=== PATIENT | female | born 2000 | race American Indian/Alaskan Native ===

== ENCOUNTER → 2024-07-26 | Outpatient (CLI) | payer BC, MEDICAID, SELFPAY ==
--- NOTE | 2024-07-26 09:15 | XR_ITS ---
Examination: Shoulder,left, 3 views Technique: Shoulder AP internal rotation, AP external rotation, Y view shoulder, 3 views Exam date and time :July 26, 2024 1008 hours INDICATIONS: Sports injury to the shoulder 2 months ago, shoulder pain FINDINGS: No shoulder fracture or dislocation No AC joint separation IMPRESSION: Negative for osseous abnormality
== END | disposition home or self-care (01) ==
LOC: CDIM 08:57
PROVIDERS: PCP Internal Medicine; Referring Provider Internal Medicine; Visit Provider Internal Medicine
DX: S49.92XA Unspecified injury of left shoulder and upper arm, initial encounter (principal); Y93.79 Activity, other specified sports and athletics
CPT/HCPCS: 73030

== ENCOUNTER → 2024-12-26 | Outpatient (CLI) | payer BC, MEDICAID, SELFPAY ==
--- NOTE | 2024-12-26 08:30 | XR_ITS ---
MRI shoulder, left, without contrast. Date and time: December 26, 2024 0941 hours INDICATIONS: Left shoulder pain months Technique: Multiple axial, sagittal and coronal sections of the shoulder have been obtained. Siemens high-resolution 1.5 Magalie MRI scanner is utilized. Axial fat-suppressed sections, TR 2350, TE 18 T2-weighted coronal fat-saturated images, TR 3500, TE 7100 T1-weighted coronal images, TR 500, TE 15 T2-weighted sagittal fat-saturated images, TR 3500, TE 57 T1-weighted sagittal sections, TR 504, TE 13. Findings: Supraspinatus tendon insertion is intact. Infraspinatus tendon insertion is intact. Subscapularis insertion is intact. Subscapularis bursa is not seen Long head of the biceps is in the bicipital groove. No definite tear of the biceps superior labral anchor is seen. Retraction of the musculotendinous junction of the rotator cuff is not seen . Tendinosis pattern is mild. Distance between the acromium and humeral head is 4.9 mm Atrophy of the supraspinatus muscle is not seen. Atrophy of the infraspinatus muscle is not seen. Sagittal sections demonstrate a horizontal acromion. Acromioclavicular joint demonstrates no arthritic change. Osacromiale is not identified. Labral margins intact. Bony glenoid fossa on the sagittal sections does not demonstrate osseous defect. Occult fracture or area of avascular necrosis is not seen. Acromioclavicular joint separation is not visible. Defect in the posterolateral margin of the humeral head is not seen Impression: Rotator cuff labral margins intact
== END | disposition home or self-care (01) ==
PROVIDERS: PCP Nurse Practitioner Family; Referring Provider Nurse Practitioner Family; Visit Provider Nurse Practitioner Family
DX: M25.512 Pain in left shoulder (principal); R20.0 Anesthesia of skin
CPT/HCPCS: 73221

== ENCOUNTER 2025-01-17 11:38 | Emergency (ER) | payer MEDICAID, SELFPAY ==
[2025-01-17 11:38] VITALS: BMI 35.4
[2025-01-17 11:56] VITALS: BP 136/90; PULSE 70; RESP 17; TEMP 36.8; O2SAT 99
--- NOTE | 2025-01-17 12:04 | XR_ITS ---
Examination: Complete OB ultrasound, less than 14 weeks, transabdominal Date and time of exam: January 17, 2025 1211 hours INDICATIONS: Vaginal bleeding onset today Technique: Obstetrical ultrasound images less than 14 weeks performed via transabdominal imaging Findings: Uterus 9.6 cm no uterine mass or intrauterine gestation Endometrial stripe 12 mm Right ovary 3.2 cm arterial flow Left ovary 3.3 cm arterial flow IMPRESSION: Negative study
--- NOTE | 2025-01-17 12:04 | EDNOTE_ITS ---
ED OB Contraction Preg RMI/HPI General Chief complaint: Vaginal Bleeding Stated complaint: 6 WK PREG, VAG BLEED Time Seen by Provider: 01/17/25 11:52 Source: patient Arrival date/time: 01/17/25 11:38 24-year-old female with no known medical history presents to the emergency room with a chief complaint of vaginal bleeding x 1 day. Patient is currently 7 weeks , she is a G 2P1. Patient denies any dysuria. Mode of arrival: ambulatory Limitations: no limitations Related Data Home Medications ?Medication ?Instructions ?Recorded ?Confirmed prenat.vits,micah,[id number] 1 tab PO QDAY 11/07/20 11/07/20 Previous Rx's ?Medication ?Instructions ?Recorded ibuprofen 800 mg tablet 800 mg PO Q8H PRN pain #30 t abs 11/07/20 ferrous sulfate 325 mg (65 mg 325 mg PO BID #60 tabs 0 11/08/20 iron) tablet Allergies Allergy/AdvReac Type Severity Reaction Status Date / Time NKA* Allergy Uncoded 01/17/25 11:40 Review of Systems Review of Systems Systems Reviewed: All systems reviewed, normal except as documented Constitutional Constitutional: Reports system reviewed and no additional complaints, except as documented, Denies fatigue, Denies fever(s), Denies headache(s) and Denies weakness Eyes Eyes: Reports system reviewed and no additional complaints, except as documented, Denies blurry vision and Denies change in vision ENT Ears, Nose, Mouth, and Throat: Reports system reviewed and no additional complaints, except as documented, Denies otalgia, Denies headache(s), Denies nasal congestion, Denies throat swelling and Denies vertigo Cardiovascular Cardiovascular: Reports system reviewed and no additional complaints, except as documented, Denies chest pain, Denies dyspnea and Denies dyspnea on exertion Respiratory Respiratory: Reports system reviewed and no additional complaints, except as documented, Denies chest congestion, Denies cough, Denies dyspnea, Denies dyspnea on exertion and Denies wheezing Gastrointestinal Gastrointestinal: Reports system reviewed and no additional complaints, except as documented, Denies abdominal pain, Denies cramping, Denies nausea and Denies vomiting Genitourinary Genitourinary: Reports system reviewed and no additional complaints, except as documented and Reports abnormal vaginal bleeding Musculoskeletal Musculoskeletal: Reports system reviewed and no additional complaints, except as documented and Denies back pain Integumentary/Breasts Skin/Breast: Reports system reviewed and no additional complaints, except as documented and Denies wounds Neurologic Neurologic: Reports system reviewed and no additional complaints, except as documented, Denies confusion, Denies headache(s), Denies lack of coordination, Denies vertigo and Denies weakness Psychiatric Psychiatric: Reports system reviewed and no additional complaints, except as documented, Denies anxiety, Denies confusion, Denies depression, Denies paranoia, Denies suicidal ideation and Denies tactile hallucinations Endocrine Endocrine: Reports system reviewed and no additional complaints, except as documented and Denies fatigue Hematologic/Lymphatic Hematologic/Lymphatic: Reports system reviewed and no additional complaints, except as documented and Denies lymphadenopathy Allergic/Immunologic Allergic/Immunologic: Reports system reviewed and no additional complaints, except as documented, Denies throat swelling, Denies urticaria and Denies wheezing Past Medical History Past Medical History NEUROLOGIC: Negative Neurological Disorders CARDIAC: Negative Cardiac Disorders or Congestive Heart Failure RESPIRATORY: Negative Chronic Obstructive Pulmonary Disease (COPD) GASTROINTESTINAL: Positive Gastroesophageal Reflux Disease (WITH ); Negative Gastrointestinal Disorders or Hepatitis GENITOURINARY: Negative Genitourinary Disorders or Renal Disease REPRODUCTIVE: Negative Endometriosis, Pelvic Inflammatory Disease, Previous Pregnancies or Uterine Prolapse MUSCULOSKELETAL: Negative Musculoskeletal Disorders ENDOCRINE: Negative Endocrine Disorders, Diabetes Mellitus Type 1 or Diabetes Mellitus Type 2 HEMATOLOGIC: Negative Blood Disorders PSYCHO/SOCIAL: Positive Depression, Anxiety and Self-Mutilation OTHER HISTORY: Positive Hospitalization (2016 ANKLE SURGERY TO CLEAN OUT TISSUE); Negative Autoimmune Disease, Down Syndrome, Developmental Delay, Shingles, Falls, Blood Transfusions, Blood Transfusion Reaction, Anesthesia Reactions, Organ Transplant, Chemotherapy, Radiation Therapy, Hyperbaric Therapy, MRSA, VRSA, Vancomycin-Resistant Enterococci, Human Immunodeficiency Virus (HIV), Chicken Pox, Measles, Mumps, Rubella (Lebanese Measles), Pertussis, Clostridium Difficile or Cancer Family History FAMILY HISTORY: Positive Family Cardiac Disorders (HTN) and Family Surgery; Negative Family Psychiatric Problems, Family Respiratory Disorders, Family Gastrointestinal Problems, Family Cancer or Family Anesthesia Reaction Surgical History SURGICAL: Negative Section or Organ Transplant Social History SMOKING STATUS: Never smoker ED Exam General Limitations: Present no limitations General appearance: Present alert and in no apparent distress Head Head exam: Present atraumatic Eye Eye exam: Present normal appearance, PERRL and EOMI ENT ENT exam: Present normal exam, normal oropharynx and mucous membranes moist Neck Neck exam: Present normal inspection, full ROM and trachea midline Chest Chest inspection: Present normal inspection and symmetric chest wall rise Respiratory Respiratory exam: Present normal lung sounds bilaterally Cardiovascular Cardiovascular exam: Present regular rate, normal rhythm and normal heart sounds Abdominal Exam Abdominal exam: Present soft and normal bowel sounds; Absent distention, tenderness, guarding or rebound Extremities Exam Extremities exam: Present normal inspection and full ROM Back Exam Back exam: Present normal inspection and full ROM Neurological Exam Neurological exam: Present alert, oriented X3 and CN II-XII intact Psychiatric Psychiatric exam: Present normal affect and normal mood Skin Skin exam: Present warm, dry, intact and normal color Course Quality Measures none Orders Category Date Time Status US OB <= 14 weeks fetus Stat Exams 01/17/25 12:04 Completed ABO/RH Type Stat Lab 01/17/25 12:42 Completed Beta HCG,Quantitative Stat Lab 01/17/25 12:42 Completed CBC Stat Lab 01/17/25 12:42 Completed CMP [Comprehensive Metabolic Panel] Stat Lab 01/17/25 12:42 Completed UA [Urinalysis] Stat Lab 01/17/25 12:50 Completed Vital Signs Vital signs: Vital Signs Temperature 98.3 F 01/17/25 11:56 Pulse Rate 70 01/17/25 11:56 Respiratory Rate 17 01/17/25 11:56 Blood Pressure 136/90 H 01/17/25 11:56 Pulse Oximetry (%) 99 01/17/25 11:56 Oxygen Delivery Method Room Air 01/17/25 11:56 O2 saturation 99% within normal limits Vaginal Bleeding MDM Narrative MDM Narrative: 24-year-old female with no known medical history presents to the emergency room with a chief complaint of vaginal bleeding x 1 day. Patient is currently 7 weeks , she is a G 2P1. Patient denies any dysuria. Patient is hemodynamically stable in no apparent distress Patient has a soft nontender abdomen there is no pelvic pain. OB ultrasound does not show an intrauterine gestation. hCG level today is at 16 Patient was educated to follow-up with her GAS REGULATOR REPAIRER HELPER in the next 24 to 48 hours or return in 3 days for repeat ultrasound and blood work Patient was discharged and educated to follow-up with primary care provider in the next 24 to 48 hours and return to the emergency room for any evidence of worsening signs or symptoms Patient data External records reviewed:: [facility] previous records Clinical information provided by:: patient Social determinants that could affect healthcare access:: none Patient has the following chronic illnesses:: No chronic illness How is presenting disease/condition affected by chronic disease/condition?: no chronic disease Evaluation data The following diagnostics were reviewed and interpreted by me:: lab results and radiology exam(s) Lab and/or radiology exams considered but not ordered:: Labs and radiology exams considered and ordered Interpretation Summary: Ultrasound OB-Findings: Uterus 9.6 cm no uterine mass or intrauterine gestation Endometrial stripe 12 mm Right ovary 3.2 cm arterial flow Left ovary 3.3 cm arterial flow IMPRESSION: Negative study Medications / Prescriptions Medications or Prescriptions considered but not ordered:: No medication given Medication administrations:: No medication given Consultations Consultation(s) initiated? (list below): No Diagnosis Vaginal Bleeding Differential Diagnosis: missed , dysfunctional uterine bleeding, ectopic without intrauterine and vaginal bleeding Most likely diagnosis given after review of the tests above:: Vaginal bleeding Admission Indicated Admission indicated?: not indicated Admission Request Was there a request for admission?: No Disposition Plan Disposition Plan: Discharge Discharge Attestation Discharge Attestation: The patient and all family members were given an opportunity to ask questions and understood the discharge instructions. Discharge instructions specifically effects, indications for sooner follow up or return to the emergency department, and the expected course of current diagnosis. Patient condition: Stable Discharge Plan Plan Patient Disposition: HOME (Self Care) Discharge Disposition comment: Stable Prescriptions/Referrals Prescriptions/Med Rec: No Action prenat.vits,micah,[id number] Tablet 1 tab PO QDAY ibuprofen 800 mg tablet 800 mg PO Q8H PRN (Reason: pain) Qty: 30 0RF ferrous sulfate 325 mg (65 mg iron) tablet 325 mg PO BID Qty: 60 2RF Referrals: Wilton Parks PA-C [Primary Care Provider] - In 1 week Problem List Clinical Impression: Vaginal bleeding Patient/Caregiver Discharge Instructions Education Materials: ED Dysfunctional Uterine Bleeding Additional Instructions: Please follow-up with your GAS REGULATOR REPAIRER HELPER in the next 24 to 48 hours Your ultrasound was completed and there was no visual intrauterine gestation at this time. Your hCG levels are at 16 Please return in 3 days for repeat blood work and ultrasound For any evidence of worsening signs or symptoms return to the emergency room immediately Print Language: Irish Stand Alone Forms: Rosemary Award Info., Work/School Release, Patient Portal Info Letter BETSEY/CARMELINA Supervising Physician BETSEY/CARMELINA Supervising Physician: Dr Ruiz
[2025-01-17 12:56] LABS: Collection Type, Urine Clean Catch
[2025-01-17 13:02] LABS: Basophils % (Auto) 1 % (0-2.5); Eosinophils # (Auto) 0.2 Thou/mm3 (0.0-0.5); Eosinophils % (Auto) 2 % (0-10); Hematocrit 37.6 % (36.0-46.0); Hemoglobin 12.4 g/dL (12.0-16.0); Immature Granulocytes % (Auto) 1 % (0-0); Immature Granulocytes Auto 0.03 Thou/mm3 (0.00-0.00); Lymphocytes # (Auto) 2.2 Thou/mm3 (1.0-4.8); Lymphocytes % (Auto) 34 % (10-50); Mean Corpuscular Hemoglobin 29.4 pg (25.0-35.0); Mean Corpuscular Volume 89 fL (80-100); Monocytes # (Auto) 0.4 Thou/mm3 (0.0-0.8); Monocytes % (Auto) 7 % (0-12); Neutrophils # (Auto) 3.7 Thou/mm3 (1.8-7.7); Neutrophils % (Auto) 56 % (37-80); Nucleated Red Blood Cell % 0 /100 WBC (0); Platelet Count 296 Thou/mm3 (140-440); RDW Standard Deviation 40.2 fL (36.4-46.3); Red Blood Count 4.22 Miln/mm3 (4.00-5.20); White Blood Count 6.6 Thou/mm3 (3.6-11.0)
[2025-01-17 13:26] LABS: Alanine Aminotransferase < 7 U/L (10-49); Albumin, Serum 4.1 gm/dL (3.5-5.0); Albumin/Globulin Ratio 1.6 (1.2-2.2); Alkaline Phosphatase 61 U/L (46-116); Anion Gap 10 (7-16); Aspartate Amino Transferase 21 U/L (0-34); BUN/Creatinine Ratio 13 Ratio (12-20); Beta HCG,Quantitative 16 mIU/mL (<5.0); Bilirubin,Total 0.6 mg/dL (0.3-1.2); Blood Urea Nitrogen 10 mg/dL (9-23); Calcium 8.9 mg/dL (8.3-10.6); Calcium (Corrected) 8.9 mg/dL (8.5-10.1); Carbon Dioxide 27.1 mMol/L (20.0-31.0); Chloride 106 mMol/L (98-107); Creatinine (Component) 0.8 mg/dL (0.6-1.3); Estimated Creatinine Clearance 114.9 mL/min (>60); Globulin 2.5 gm/dL (2.3-3.5); Glucose 79 mg/dL (74-106); Osmolality,Calculated 282 (275-295); Sodium 143 mMol/L (136-145); Total Protein 6.6 gm/dL (5.7-8.2); eGFR > 60 See Note
[2025-01-17 13:26] LABS: Bilirubin,Urine Negative (Negative); Blood,Urine 3+ (Negative); Clarity,Urine Clear (Clear/Hazy); Color,Urine Colorless (Lt Yel-Yel); Glucose, Urine Negative (Negative); Ketones,Urine Negative (Negative); Leukocyte Esterase,Urine Negative (Negative); Nitrite,Urine Negative (Negative); Protein,Urine Negative (Neg - Trace); RBC,Urine 2 /hpf (0-3); Specific Gravity,Urine 1.006 (1.001-1.035); Squamous Epithelial Cell,Urine 1 /hpf (0-5); Urobilinogen,Urine Negative mg/dL (0.0-1.0); WBC,Urine 1 /hpf (0-5)
== END 2025-01-17 14:43 | disposition home or self-care (01) ==
PROVIDERS: Nurse Practitioner Family; Emergency Provider Emergency Medicine; PCP Physician Assistant
DX: O20.9 Hemorrhage in early pregnancy, unspecified (principal); Z3A.01 Less than 8 weeks gestation of pregnancy
CPT/HCPCS: 36415; 76801; 80053; 81001; 84702; 85025; 86900; 86901; 99284

== ENCOUNTER 2025-04-27 18:52 | Emergency (ER) | payer MEDICAID, SELFPAY ==
[2025-04-27 19:29] VITALS: BP 136/88; PULSE 70; RESP 18; TEMP 37.6; O2SAT 97; BMI 35.4
--- NOTE | 2025-04-27 19:33 | XR_ITS ---
Examination: Complete OB ultrasound, less than 14 weeks, transabdominal Date and time of exam: April 27, 20252003 hrs. Indications: Onset vaginal bleeding today Technique: Obstetrical ultrasound images less than 14 weeks performed via transabdominal imaging Findings: A normal shaped single intrauterine gestation is present in the uterus. CRL 7.6 cm corresponds to 13 weeks 5 day gestational age Cardiac motion 169 bpm Ultrasonographic survey of visible and placental structures unremarkable. Amniotic fluid volume appears appropriate for this estimated gestational age. Ovaries obscured by bowel gas Impression: Viable intrauterine gestation 13 weeks 5 days.
--- NOTE | 2025-04-27 19:44 | EDNOTE_ITS ---
ED OB Contraction Preg RMI/HPI General Chief complaint: Vaginal Bleeding Stated complaint: 14 WKS PREG BLEEDING W/CRAMPING Time Seen by Provider: 04/27/25 19:32 Arrival date/time: 04/27/25 18:52 RME / HPI RME / HPI Narrative: 24-year-old female G3, A1, L1 presents to the ER at roughly 14 weeks of complaining of spontaneous vaginal bleeding which occurred about an hour before coming here through her pants. Patient had a pad applied upon arrival in the ER and has not soaked through it. Denies severe pelvic pain, nausea, vomiting, diarrhea, abnormal vaginal discharge, pain with eating. Patient has not had a prior ultrasound for this as she is 2 months out. Related Data Home Medications ?Medication ?Instructions ?Recorded ?Confirmed prenat.vits,micah,oit-[id number] 1 tab PO QDAY 11/07/20 11/07/20 Previous Rx's ?Medication ?Instructions ?Recorded ibuprofen 800 mg tablet 800 mg PO Q8H PRN pain #30 t abs 11/07/20 ferrous sulfate 325 mg (65 mg 325 mg PO BID #60 tabs 0 11/08/20 iron) tablet doxylamine 10 mg-pyridoxine (vit 1 tab PO QDAY #30 tab s 04/27/25 B6) 10 mg tablet,delayed release (Diclegis) Allergies Allergy/AdvReac Type Severity Reaction Status Date / Time NKA* Allergy Uncoded 04/27/25 18:55 ED Exam Narrative Physical exam: Constitutional: Patient alert and oriented. Well appearing. No acute distress. Not toxic appearing. Head: Normocephalic, atraumatic. Eyes: Periorbital regions bilaterally normal to inspection. Conjunctiva clear bilaterally. Sclera anicteric bilaterally. Pupils equal, round, reactive to light bilaterally. Extraocular movements intact bilaterally. Mouth/Throat: Mucous membranes moist. No stridor or muffled voice. No trismus. Handling secretions without difficulty. Airway widely patent. Neck: Supple. Trachea midline. No JVD. No nuchal rigidity. Normal range of motion. Respiratory: Normal effort. No accessory muscle use or respiratory distress. Lungs clear to auscultation bilaterally without rhonchi, wheezes, or crackles. Cardiovascular: RRR. Normal S1/S2. No murmurs or rubs. Radial pulses intact bilaterally. Abdomen: Soft. Non-distended. Non-tender throughout. No pulsatile mass. No guarding or rebound. Negative Lowry?s sign. Negative McBurney?s point tenderness. Negative Rovsing?s. : Exam deferred Back: No midline tenderness or step-offs. No CVA tenderness to palpation bilaterally. Upper Extremities: No gross deformities. Lower Extremities: No gross deformities. No edema or calf tenderness. Neuro: Speech normal. No gross motor or sensory deficits to upper or lower extremities bilaterally. GCS 15. CN II?XII grossly intact. Skin: Warm, dry, normal color. Psych: Normal affect. Cooperative. Normal insight. Course Course Course Narrative: This patient is in the first trimester of her and the cause of the symptoms is uncertain. After a careful history, physical exam, and evaluation of the HCG, CBC, and ultrasound, the differential diagnoses include an early with the risk of a miscarriage, abnormal . I have low suspicion for a heterotopic . The patient will be instructed to follow- up with an office machines sales representative within 48-72 hours for re-evaluation and repeating the quantitative HCG. A repeat ultrasound will also need to be done. The patient is warned to return to the ED immediately if she develops symptoms indicative of a possible ruptured ectopic or excessive bleeding with miscarriage Quality Measures none Orders Category Date Time Status US OB <= 14 weeks fetus Stat Exams 04/27/25 19:33 Completed ABO/RH Type Stat Lab 04/27/25 19:47 Completed Beta HCG,Quantitative Stat Lab 04/27/25 19:47 Completed CBC Stat Lab 04/27/25 19:47 Completed CMP [Comprehensive Metabolic Panel] Stat Lab 04/27/25 19:47 Completed UA, C/S IF [Urinalysis, C/S if Indicated] Stat Lab 04/27/25 22:04 Received Acetaminophen Tab [Tylenol ES Tab] Med 04/27/25 19:33 Discontinued 500 mg PO X1 ONE Reevaluation(s) Reevaluation #1: At the time of reassessment, the patient remains alert and oriented ?3 with GCS 15. Vitals are normal, pain is controlled, and the patient is tolerating oral intake without nausea or vomiting. Serial abdominal exams benign without peritonitis and pt remains hemodynamically stable. Patient is agreeable to discharge and verbalizes understanding of the diagnosis, studies, treatment plan, medications (including side effects/precautions), and strict ER return precautions as discussed in the ED. All concerns were addressed, and the patient is comfortable with the plan. Vital Signs Vital signs: Vital Signs Temperature 99.7 F 04/27/25 19:29 Pulse Rate 70 04/27/25 19:29 Respiratory Rate 18 04/27/25 19:29 Blood Pressure 136/88 H 04/27/25 19:29 Pulse Oximetry (%) 97 04/27/25 19:29 Oxygen Delivery Method Room Air 04/27/25 19:29 Vaginal Bleeding Patient data External records reviewed:: None Clinical information provided by:: patient Social determinants that could affect healthcare access:: none Patient has the following chronic illnesses:: none How is presenting disease/condition affected by chronic disease/condition?: no chronic disease Evaluation data The following diagnostics were reviewed and interpreted by me:: lab results and radiology exam(s) Lab and/or radiology exams considered but not ordered:: Labs and radiology considered, but not ordered as they were not clinically indicated at this time. Interpretation Summary: Labs and radiology considered, but not ordered as they were not clinically indicated at this time. Medications / Prescriptions Medications or Prescriptions considered but not ordered:: I considered prescription management (both outpatient prescriptions AND drug treatment in the ER) and decided that this was necessary and was prescribed as charted. Medication administrations:: Medication Administration History Discontinued Medications Acetaminophen (Acetaminophen 500 Mg Tablet) 500 mg PO X1 ONE Stop: 04/27/25 19:34 Last Admin: 04/27/25 19:47 Dose: Not Given Documented By: AKIL Non-Admin Reason: Patient Refused See above Consultations Consultation(s) initiated? (list below): No Diagnosis Vaginal Bleeding Differential Diagnosis: threatened , incomplete and vaginal bleeding Most likely diagnosis given after review of the tests above:: Threatened Admission Indicated Admission indicated?: not indicated Explain why admission is indicated or not indicated:: Escalation of care including admission/observation considered but I decided to discharge because based on the overall clinical presentation, and after consideration of the patient's course in the emergency department and plan for outpatient management, I believe that neither further observation nor inpatient care is required at this time. Admission Request Was there a request for admission?: No Disposition Plan Disposition Plan: Discharge Discharge Attestation Discharge Attestation: The patient and all family members were given an opportunity to ask questions and understood the discharge instructions. Discharge instructions specifically effects, indications for sooner follow up or return to the emergency department, and the expected course of current diagnosis. Patient condition: Stable Discharge Plan Plan Patient Disposition: HOME (Self Care) Discharge Disposition comment: Follow up with your COFFEE ROASTER doctor within 48 hours. Return to the Emergency Room immediately for any new, worsening, continuing symptoms or any concerns at all. Return to the Emergency Room within 48 hours if you are unable to follow up with your COFFEE ROASTER doctor within 48 hours. Patient condition on transfer: Stable Prescriptions/Referrals Prescriptions/Med Rec: New doxylamine-pyridoxine (vit B6) [Diclegis] 10-10 mg tablet,delayed release (DR/EC) 1 tab PO QDAY Qty: 30 0RF No Action prenat.vits,micah,[id number] Tablet 1 tab PO QDAY ibuprofen 800 mg tablet 800 mg PO Q8H PRN (Reason: pain) Qty: 30 0RF ferrous sulfate 325 mg (65 mg iron) tablet 325 mg PO BID Qty: 60 2RF Problem List Clinical Impression: Threatened Patient/Caregiver Discharge Instructions Other Activity Instructions:: You are on strict bedrest, please do not place anything inside of your vagina, please stay hydrated. No strenuous activity. Education Materials: ED Possible Miscarriage ... Print Language: Tanzanian Stand Alone Forms: Rosemary Award Info., Patient Portal Info Letter PA/NATIONAL SALES EXECUTIVE Supervising Physician PA/NATIONAL SALES EXECUTIVE Supervising Physician: Dr. Early
[2025-04-27 19:58] LABS: Basophils # (Auto) 0.0 Thou/mm3 (0.0-0.2); Basophils % (Auto) 0 % (0-2.5); Eosinophils # (Auto) 0.1 Thou/mm3 (0.0-0.5); Eosinophils % (Auto) 2 % (0-10); Hematocrit 35.1 % (36.0-46.0); Hemoglobin 12.0 g/dL (12.0-16.0); Immature Granulocytes Auto 0.02 Thou/mm3 (0.00-0.00); Lymphocytes # (Auto) 2.5 Thou/mm3 (1.0-4.8); Lymphocytes % (Auto) 28 % (10-50); Mean Corpuscular HGB Conc 34.2 g/dl (31.0-37.0); Mean Corpuscular Hemoglobin 30.1 pg (25.0-35.0); Mean Corpuscular Volume 88 fL (80-100); Monocytes # (Auto) 0.4 Thou/mm3 (0.0-0.8); Monocytes % (Auto) 5 % (0-12); Neutrophils # (Auto) 5.7 Thou/mm3 (1.8-7.7); Neutrophils % (Auto) 65 % (37-80); Nucleated Red Blood Cell # 0.00 Thou/mm3 (0.00-0.00); Nucleated Red Blood Cell % 0 /100 WBC (0); Platelet Count 248 Thou/mm3 (140-440); RDW Standard Deviation 38.7 fL (36.4-46.3); Red Blood Count 3.99 Miln/mm3 (4.00-5.20); White Blood Count 8.8 Thou/mm3 (3.6-11.0)
[2025-04-27 20:18] LABS: Alanine Aminotransferase < 7 U/L (10-49); Albumin, Serum 4.2 gm/dL (3.5-5.0); Albumin/Globulin Ratio 1.8 (1.2-2.2); Alkaline Phosphatase 51 U/L (46-116); Anion Gap 11 (7-16); Aspartate Amino Transferase 18 U/L (0-34); BUN/Creatinine Ratio 13 Ratio (12-20); Bilirubin,Total 0.4 mg/dL (0.3-1.2); Blood Urea Nitrogen 8 mg/dL (9-23); Calcium 9.5 mg/dL (8.3-10.6); Calcium (Corrected) 9.5 mg/dL (8.5-10.1); Carbon Dioxide 23.5 mMol/L (20.0-31.0); Chloride 104 mMol/L (98-107); Creatinine (Component) 0.6 mg/dL (0.6-1.3); Estimated Creatinine Clearance 153.2 mL/min (>60); Globulin 2.3 gm/dL (2.3-3.5); Glucose 101 mg/dL (74-106); Osmolality,Calculated 273 (275-295); Potassium 3.8 mMol/L (3.4-5.1); Sodium 138 mMol/L (136-145); Total Protein 6.5 gm/dL (5.7-8.2); eGFR > 60 See Note
[2025-04-27 20:54] LABS: Beta HCG,Quantitative 22164 mIU/mL (<5.0)
[2025-04-27 22:18] LABS: Collection Type, Urine Clean Catch
[2025-04-27 22:25] LABS: Bilirubin,Urine Negative (Negative); Blood,Urine 3+ (Negative); Clarity,Urine Clear (Clear/Hazy); Color,Urine Colorless (Lt Yel-Yel); Culture Indicated,Urine Not Indicated; Glucose, Urine Negative (Negative); Ketones,Urine Negative (Negative); Leukocyte Esterase,Urine Negative (Negative); Nitrite,Urine Negative (Negative); PH,Urine 6.5 (5.0-7.0); Protein,Urine Negative (Neg - Trace); RBC,Urine 8 /hpf (0-3); Specific Gravity,Urine 1.008 (1.001-1.035); Squamous Epithelial Cell,Urine 2 /hpf (0-5); Urobilinogen,Urine Negative mg/dL (0.0-1.0); WBC,Urine 2 /hpf (0-5)
== END 2025-04-27 23:01 | disposition home or self-care (01) ==
LOC: SERX 21:37
PROVIDERS: Physician Assistant; Emergency Provider Emergency Medicine; PCP Nurse Practitioner Family
DX: O20.0 Threatened abortion (principal); Z3A.14 14 weeks gestation of pregnancy
CPT/HCPCS: 36415; 76801; 80053; 81001; 84702; 85025; 86900; 86901; 99283

== ENCOUNTER 2025-05-06 08:59 | Emergency (ER) | payer MEDICAID, SELFPAY ==
[2025-05-06 09:00] VITALS: BMI 35.4
[2025-05-06 09:11] VITALS: BP 142/89; PULSE 81; RESP 17; TEMP 36.9; O2SAT 98
--- NOTE | 2025-05-06 09:23 | XR_ITS ---
Examination: Abdomen sonogram, Limited Date and time of exam: May 06, 2025 1004 hours INDICATIONS: Abdominal pain beginning 2 days ago, 15 week by history Technique: Real-time chung scale transabdominal sonographic images of the upper abdomen obtained. Findings: Normal gallbladder. Normal common bile duct 0.3 cm. Pancreatic head 2.4 cm Liver 15.6 cm smooth contour Normal hepatopedal portal venous flow Patent IVC IMPRESSION: Negative study
--- NOTE | 2025-05-06 09:28 | PD.EDPREG ---
ED OB Contraction Preg RMI/HPI General Stated complaint: 15 WK PREG, ITCHINESS TO BODY, SWELLING TO NECK Time Seen by Provider: 05/06/25 09:08 Source: patient Arrival date/time: 05/06/25 08:59 24-year-old female with no known medical history presents to the emergency room with a chief complaint of itchiness throughout her body and a rash to the left side of her neck x 2 days. Patient is currently 15 weeks . Mode of arrival: ambulatory Limitations: no limitations Related Data Home Medications ?Medication ?Instructions ?Recorded ?Confirmed prenat.vits,micah,[id number] 1 tab PO QDAY 11/07/20 11/07/20 Previous Rx's ?Medication ?Instructions ?Recorded ibuprofen 800 mg tablet 800 mg PO Q8H PRN pain #30 tabs 11/07/20 ferrous sulfate 325 mg (65 mg 325 mg PO BID #60 tabs 11/08/20 iron) tablet doxylamine 10 mg-pyridoxine (vit 1 tab PO QDAY #30 tabs 04/27/25 B6) 10 mg tablet,delayed release (Diclegis) hydrocortisone 1 % topical cream 1 applic topical TID PRN itching 05/06/25 #28.35 grams Allergies Allergy/AdvReac Type Severity Reaction Status Date / Time NKA* Allergy Uncoded 05/06/25 09:01 Review of Systems Review of Systems Systems Reviewed: All systems reviewed, normal except as documented Constitutional Constitutional: Reports system reviewed and no additional complaints, except as documented, Denies fatigue, Denies fever(s), Denies headache(s) and Denies weakness Eyes Eyes: Reports system reviewed and no additional complaints, except as documented, Denies blurry vision, Denies change in vision and Denies itchy eyes ENT Ears, Nose, Mouth, and Throat: Reports system reviewed and no additional complaints, except as documented, Denies otalgia, Denies headache(s), Denies lip swelling, Denies nasal congestion, Denies throat swelling, Denies tongue swelling and Denies vertigo Cardiovascular Cardiovascular: Reports system reviewed and no additional complaints, except as documented, Denies chest pain, Denies dyspnea and Denies dyspnea on exertion Respiratory Respiratory: Reports system reviewed and no additional complaints, except as documented, Denies chest congestion, Denies cough, Denies dyspnea, Denies dyspnea on exertion and Denies wheezing Gastrointestinal Gastrointestinal: Reports system reviewed and no additional complaints, except as documented, Denies abdominal pain, Denies cramping, Denies nausea and Denies vomiting Genitourinary Genitourinary: Reports system reviewed and no additional complaints, except as documented Musculoskeletal Musculoskeletal: Reports system reviewed and no additional complaints, except as documented and Denies back pain Integumentary/Breasts Skin/Breast: Reports system reviewed and no additional complaints, except as documented and Denies wounds Neurologic Neurologic: Reports system reviewed and no additional complaints, except as documented, Denies confusion, Denies headache(s), Denies lack of coordination, Denies vertigo and Denies weakness Psychiatric Psychiatric: Reports system reviewed and no additional complaints, except as documented, Denies anxiety, Denies confusion, Denies depression, Denies paranoia, Denies suicidal ideation and Denies tactile hallucinations Endocrine Endocrine: Reports system reviewed and no additional complaints, except as documented and Denies fatigue Hematologic/Lymphatic Hematologic/Lymphatic: Reports system reviewed and no additional complaints, except as documented and Denies lymphadenopathy Allergic/Immunologic Allergic/Immunologic: Reports system reviewed and no additional complaints, except as documented, Denies GI upset with certain foods, Denies itchy eyes, Denies lip swelling, Denies seasonal rhinorrhea, Denies throat swelling, Denies tongue swelling, Reports urticaria and Denies wheezing Past Medical History Past Medical History NEUROLOGIC: Negative Neurological Disorders CARDIAC: Negative Cardiac Disorders or Congestive Heart Failure RESPIRATORY: Negative Chronic Obstructive Pulmonary Disease (COPD) GASTROINTESTINAL: Positive Gastroesophageal Reflux Disease (WITH ); Negative Gastrointestinal Disorders or Hepatitis GENITOURINARY: Negative Genitourinary Disorders or Renal Disease REPRODUCTIVE: Negative Endometriosis, Pelvic Inflammatory Disease, Previous Pregnancies or Uterine Prolapse MUSCULOSKELETAL: Negative Musculoskeletal Disorders ENDOCRINE: Negative Endocrine Disorders, Diabetes Mellitus Type 1 or Diabetes Mellitus Type 2 HEMATOLOGIC: Negative Blood Disorders PSYCHO/SOCIAL: Positive Depression, Anxiety and Self-Mutilation OTHER HISTORY: Positive Hospitalization (2016 ANKLE SURGERY TO CLEAN OUT TISSUE); Negative Autoimmune Disease, Down Syndrome, Developmental Delay, Shingles, Falls, Blood Transfusions, Blood Transfusion Reaction, Anesthesia Reactions, Organ Transplant, Chemotherapy, Radiation Therapy, Hyperbaric Therapy, MRSA, VRSA, Vancomycin-Resistant Enterococci, Human Immunodeficiency Virus (HIV), Chicken Pox, Measles, Mumps, Rubella (Sammarinese Measles), Pertussis, Clostridium Difficile or Cancer Family History FAMILY HISTORY: Positive Family Cardiac Disorders (HTN) and Family Surgery; Negative Family Psychiatric Problems, Family Respiratory Disorders, Family Gastrointestinal Problems, Family Cancer or Family Anesthesia Reaction Surgical History SURGICAL: Negative Section or Organ Transplant Social History SMOKING STATUS: Never smoker ED Exam General Limitations: Present no limitations General appearance: Present alert and in no apparent distress Head Head exam: Present atraumatic Eye Eye exam: Present normal appearance, PERRL and EOMI ENT ENT exam: Present normal exam, normal oropharynx and mucous membranes moist Neck Neck exam: Present normal inspection, full ROM and trachea midline Chest Chest inspection: Present normal inspection and symmetric chest wall rise Respiratory Respiratory exam: Present normal lung sounds bilaterally; Absent respiratory distress, wheezes, stridor, accessory muscle use or prolonged expiratory phase Cardiovascular Cardiovascular exam: Present regular rate, normal rhythm and normal heart sounds Abdominal Exam Abdominal exam: Present soft and normal bowel sounds Extremities Exam Extremities exam: Present normal inspection and full ROM Back Exam Back exam: Present normal inspection and full ROM Neurological Exam Neurological exam: Present alert, oriented X3 and CN II-XII intact Psychiatric Psychiatric exam: Present normal affect and normal mood Skin Skin exam: Present warm, dry, intact and normal color Course Quality Measures none Orders Category Date Time Status US OB >= 14 weeks Fetus Stat Exams 05/06/25 09:29 Completed US gall bladder Stat Exams 05/06/25 09:23 Completed ABO/RH Type Stat Lab 05/06/25 09:25 Completed Beta HCG,Quantitative Stat Lab 05/06/25 09:25 Completed CBC Stat Lab 05/06/25 09:25 Completed CMP [Comprehensive Metabolic Panel] Stat Lab 05/06/25 09:25 Completed UA [Urinalysis] Stat Lab 05/06/25 09:46 Completed lorataDINE [Claritin] Med 05/06/25 09:24 Discontinued 10 mg PO X1 ONE Vital Signs Vital signs: Vital Signs Temperature 98.4 F 05/06/25 09:11 Pulse Rate 81 05/06/25 09:11 Respiratory Rate 17 05/06/25 09:11 Blood Pressure 142/89 H 05/06/25 09:11 Pulse Oximetry (%) 98 05/06/25 09:11 Oxygen Delivery Method Room Air 05/06/25 09:11 OB/Uterine Contractions MDM Narrative MDM Narrative:: 24-year-old female with no known medical history presents to the emergency room with a chief complaint of itchiness throughout her body and a rash to the left side of her neck x 2 days. Patient is currently 15 weeks . Patient is hemodynamically stable and in no apparent distress Physical examination shows clear bilateral lung sounds there is no wheezing stridor or any abnormal breath sounds. There is no tongue swelling lip swelling or difficulty breathing. The patient has a rash to the left side of her neck that is erythemic and has hives. Ultrasound of her gallbladder was completed and was negative for any related cholelithiasis Ultrasound OB was completed and shows a viable intrauterine gestation at 15 weeks and 2 days with heart tones at 133 bpm. I educated the patient that her placenta was very low and a repeat ultrasound will be needed in 1 month. Patient was given some antihistamines with minimal improvement to the rash but the patient's itchiness got slightly better Patient was discharged and educated to follow-up with primary care provider in the next 24 to 48 hours and return to the emergency room for any evidence of worsening signs or symptoms Patient data External records reviewed:: [facility] previous records Clinical information provided by:: patient Social determinants that could affect healthcare access:: none Patient has the following chronic illnesses:: No chronic illness How is presenting disease/condition affected by chronic disease/condition?: no chronic disease Evaluation data The following diagnostics were reviewed and interpreted by me:: lab results and radiology exam(s) Lab and/or radiology exams considered but not ordered:: Labs and radiology exams considered and ordered Interpretation Summary: Ultrasound OB-Findings: Viable intrauterine single fetus with single amniotic sac presentation breech spine anterior Cardiac motion 133 BPM Placenta anterior, low lying placenta grade 1 Umbilical cord insertion seen Amniotic fluid index adequate Cervix 4.1 cm Right ovary 3.4 cm arterial flow Left ovary 3.5 cm arterial flow. Composite estimated gestational age based on BPD, head circumference, abdominal circumference, femur length is 15 weeks 2 days Estimated weight 120 g. Survey of intracranial anatomy, spinal anatomy, abdominal anatomy, four-chamber heart performed with no abnormalities identified. Impression: Viable intrauterine gestation breech presentation Low lying placenta, recommend 1 month follow-up pelvic sonography. Ultrasound gallbladder-Findings: Normal gallbladder. Normal common bile duct 0.3 cm. Pancreatic head 2.4 cm Liver 15.6 cm smooth contour Normal hepatopedal portal venous flow Patent IVC IMPRESSION: Negative study Medications / Prescriptions Medications or Prescriptions considered but not ordered:: Medication given Medication administrations:: Medication Administration History Discontinued Medications Loratadine (Loratadine 10 Mg Tablet) 10 mg PO X1 ONE Stop: 05/06/25 09:25 Last Admin: 05/06/25 09:45 Dose: 10 mg Documented By: CN Medication given Consultations Consultation(s) initiated? (list below): No Diagnosis OB Contractions Differential Diagnosis: other ( pruritus/cholelithiasis/allergic reaction) Most likely diagnosis given after review of the tests above:: pruritus Admission Indicated Admission indicated?: not indicated Explain why admission is indicated or not indicated:: N/A Admission Request Was there a request for admission?: No Disposition Plan Disposition Plan: Discharge Discharge Attestation Discharge Attestation: The patient and all family members were given an opportunity to ask questions and understood the discharge instructions. Discharge instructions specifically effects, indications for sooner follow up or return to the emergency department, and the expected course of current diagnosis. Patient condition: Stable Discharge Plan Plan Patient Disposition: HOME (Self Care) Discharge Disposition comment: Stable Prescriptions/Referrals Prescriptions/Med Rec: New hydrocortisone 1 % cream 1 applic topical TID PRN (Reason: itching) Qty: 28.35 0RF No Action prenat.vits,micah,[id number] Tablet 1 tab PO QDAY ibuprofen 800 mg tablet 800 mg PO Q8H PRN (Reason: pain) Qty: 30 0RF ferrous sulfate 325 mg (65 mg iron) tablet 325 mg PO BID Qty: 60 2RF doxylamine-pyridoxine (vit B6) [Diclegis] 10-10 mg tablet,delayed release (DR/EC) 1 tab PO QDAY Qty: 30 0RF Referrals: Ayse Villanueva PA-C ([facility]) [Primary Care Provider] - In 1 week Problem List Clinical Impression: pruritus, Abdominal cramping affecting Patient/Caregiver Discharge Instructions Education Materials: ED Symptoms With Uncertain Cause Additional Instructions: Please follow-up with your primary care provider and your [employer] in the next 24 to 48 hours Your ultrasound shows a in good standing at 15 weeks and 2 days. With heart tones at 133 bpm. Your hCG levels are at 13,614. Your ultrasound today showed a low-lying placenta. Our radiologist recommends 1 month follow-up with pelvic sonography with your [employer] For any evidence of worsening signs or symptoms return to the emergency room immediately Print Language: Wallisian Stand Alone Forms: Rosemary Award Info., Work/School Release, Patient Portal Info Letter PA/COORDINATOR OF PLACEMENT Supervising Physician PA/COORDINATOR OF PLACEMENT Supervising Physician: Dr. Traylor
--- NOTE | 2025-05-06 09:29 | XR_ITS ---
Examination: Complete OB ultrasound greater than 14 weeks Date and time of exam: May 06, 2025, 10:15 AM INDICATIONS: Abdominal pain pelvic pain beginning 2 days ago. Findings: Viable intrauterine single fetus with single amniotic sac presentation breech spine anterior Cardiac motion 133 BPM Placenta anterior, low lying placenta grade 1 Umbilical cord insertion seen Amniotic fluid index adequate Cervix 4.1 cm Right ovary 3.4 cm arterial flow Left ovary 3.5 cm arterial flow. Composite estimated gestational age based on BPD, head circumference, abdominal circumference, femur length is 15 weeks 2 days Estimated weight 120 g. Survey of intracranial anatomy, spinal anatomy, abdominal anatomy, four-chamber heart performed with no abnormalities identified. Impression: Viable intrauterine gestation breech presentation Low lying placenta, recommend 1 month follow-up pelvic sonography.
[2025-05-06 09:36] LABS: Basophils # (Auto) 0.0 Thou/mm3 (0.0-0.2); Basophils % (Auto) 0 % (0-2.5); Eosinophils # (Auto) 0.4 Thou/mm3 (0.0-0.5); Eosinophils % (Auto) 6 % (0-10); Hematocrit 37.1 % (36.0-46.0); Hemoglobin 12.2 g/dL (12.0-16.0); Immature Granulocytes Auto 0.03 Thou/mm3 (0.00-0.00); Lymphocytes # (Auto) 1.6 Thou/mm3 (1.0-4.8); Lymphocytes % (Auto) 21 % (10-50); Mean Corpuscular HGB Conc 32.9 g/dl (31.0-37.0); Mean Corpuscular Hemoglobin 29.4 pg (25.0-35.0); Mean Corpuscular Volume 89 fL (80-100); Monocytes # (Auto) 0.4 Thou/mm3 (0.0-0.8); Monocytes % (Auto) 5 % (0-12); Neutrophils # (Auto) 5.2 Thou/mm3 (1.8-7.7); Neutrophils % (Auto) 68 % (37-80); Nucleated Red Blood Cell # 0.00 Thou/mm3 (0.00-0.00); Nucleated Red Blood Cell % 0 /100 WBC (0); Platelet Count 238 Thou/mm3 (140-440); RDW Standard Deviation 40.5 fL (36.4-46.3); Red Blood Count 4.15 Miln/mm3 (4.00-5.20); White Blood Count 7.6 Thou/mm3 (3.6-11.0)
[2025-05-06 09:48] LABS: Collection Type, Urine Clean Catch
[2025-05-06 10:17] LABS: Alanine Aminotransferase < 7 U/L (10-49); Albumin, Serum 3.7 gm/dL (3.5-5.0); Albumin/Globulin Ratio 1.5 (1.2-2.2); Alkaline Phosphatase 46 U/L (46-116); Anion Gap 9 (7-16); Aspartate Amino Transferase 18 U/L (0-34); BUN/Creatinine Ratio 8 Ratio (12-20); Bilirubin,Total 0.6 mg/dL (0.3-1.2); Blood Urea Nitrogen 5 mg/dL (9-23); Calcium 9.4 mg/dL (8.3-10.6); Calcium (Corrected) 9.6 mg/dL (8.5-10.1); Carbon Dioxide 22.3 mMol/L (20.0-31.0); Chloride 108 mMol/L (98-107); Creatinine (Component) 0.6 mg/dL (0.6-1.3); Estimated Creatinine Clearance 153.2 mL/min (>60); Globulin 2.5 gm/dL (2.3-3.5); Glucose 92 mg/dL (74-106); Osmolality,Calculated 274 (275-295); Potassium 4.1 mMol/L (3.4-5.1); Sodium 139 mMol/L (136-145); Total Protein 6.2 gm/dL (5.7-8.2); eGFR > 60 See Note
[2025-05-06 10:29] LABS: Amorphous Crystals,Urine Present (Absent); Bacteria,Urine Rare; Bilirubin,Urine Negative (Negative); Blood,Urine Negative (Negative); Clarity,Urine Clear (Clear/Hazy); Color,Urine Lt-Yellow (Lt Yel-Yel); Glucose, Urine Negative (Negative); Ketones,Urine Negative (Negative); Leukocyte Esterase,Urine Negative (Negative); Nitrite,Urine Negative (Negative); PH,Urine 7.0 (5.0-7.0); Protein,Urine Negative (Neg - Trace); RBC,Urine 2 /hpf (0-3); Specific Gravity,Urine 1.026 (1.001-1.035); Squamous Epithelial Cell,Urine 3 /hpf (0-5); Urobilinogen,Urine Negative mg/dL (0.0-1.0); WBC,Urine < 1 /hpf (0-5)
[2025-05-06 10:31] LABS: Beta HCG,Quantitative 13614 mIU/mL (<5.0)
== END 2025-05-06 11:28 | disposition home or self-care (01) ==
PROVIDERS: Nurse Practitioner Family; Emergency Provider Emergency Medicine; PCP Nurse Practitioner Family
DX: O26.892 Other specified pregnancy related conditions, second trimester (principal); L29.89 Other pruritus; O99.891 Other specified diseases and conditions complicating pregnancy; R10.9 Unspecified abdominal pain; O32.1XX0 Maternal care for breech presentation, not applicable or unspecified; O44.42 Low lying placenta NOS or without hemorrhage, second trimester; Z3A.15 15 weeks gestation of pregnancy
CPT/HCPCS: 36415; 76705; 76805; 80053; 81001; 84702; 85025; 86900; 86901; 99283; A9270

== ENCOUNTER 2025-05-16 09:47 | Outpatient (AMB) | payer MEDICAID, SELFPAY ==
--- NOTE | 2025-05-16 09:58 | AMB.OBINITIA ---
Vital Signs 05/16/25 09:59 Height 1.6 m Height Method Stated Weight 92.59 kg Weight Measurement Method Standing Scale BMI 36.1 BP 134/79 H Blood Pressure Source Automatic Cuff Blood Pressure Location Left Upper Arm Position Sitting Respiration 16 Pulse 80 Pulse Source Monitor Temp 97.2 F Temp Source Oral Pulse Oximetry (%) 97 Oxygen Delivery Method Room Air Allergies/Home Meds Allergies & Medications Allergies NKA* Allergy (Uncoded 05/06/25 09:01) Intake Visit Data Collection New Patient or Established: Established Patient (seen at [facility] within 3 years) Reason for Visit:: OBC Seen by Clinical Staff ONLY (RN/MA): No Mineral Technologist Required: No Do You Feel Safe at Home: Yes Authorities Contacted: N/A PCP or OBGYN visit in last 3 months: Yes Date of Last PCP or OBGYN visit: 05/06/25 Hx Now: Yes Are you currently on any form of Control: No Pain Present Currently: No Pain Scale Used: Mast-Mixon/Numerical Pain scale:: 0 Smoking Status Smoking Status: Never smoker Questionnaires Covid-19 Vaccine Questionnaire Has patient been vacinated for Covid-19 Have you been vacinated for Covid-19: Yes PHQ-9 PHQ-2 Over the last 2 weeks, how often have you been bothered by any of the following problems? 1. Little interest or pleasure in doing things: not at all 2. Feeling down, depressed, or hopeless: not at all Total score: 0 PHQ-9 3. Trouble falling or staying asleep, or sleeping too much: Not at all 4. Feeling tired or having little energy: Not at all 5. Poor appetite or overeating: Not at all 6. Feeling bad about yourself - or that you are a failure or have let yourself or your family down: Not at all 7. Trouble concentrating on things, such as reading the newspaper or watching television: Not at all 8. Moving or speaking so slowly that other people could have noticed? - Or the opposite - being so fidgety or restless that you have been moving around a lot more than usual: not at all 9. Thoughts that you would be better off or of hurting yourself in some way: Not at all Total score: 0 If you checked off any problems, how difficult have these problems made it for you to do your work, take care of things at home, or get along with other people?: not difficult at all Source: Developed by Drs. Andre Hearn, Dasha Paul, Cory March and colleagues, with an educational meryl from [employer]. Depression screen completed yes Social History Living Situation History Marital Status: Single Lives With: Family Housing: TRAILER Tobacco History Smoking Status: Never smoker Second Hand Smoke Exposure: No Alcohol History Alcohol Intake: Never Domestic Abuse History Do You Feel Safe at Home: Yes BUSINESS SUPPORT ASSISTANT: Past Medical History Past Medical History: No Hx Neurological Disorders, No Hx Cardiac Disorders, No Hx Cancer, No Hx Blood Disorders, No Hx Gastrointestinal Disorders, No Hx Renal Disease, No Hx Diabetes Mellitus Type 1 and No Hx Diabetes Mellitus Type 2 OB Initial Visit OB Flowsheet OB Flowsheet Initial Weight: Not Recorded Date <del>?</del> EGA Weight BP Alb Glu CTX Pres Fundal ht FHR Mov Dilation Station Effacement Hx Notes Visit Note 05/16/25 <del>?</del> 16w 5d 92.59 kg 134/79 absent unknown 16 145 active 24-year-old 3 para 1 for OBI. Patient's last period January 19, 2025. Reports poor dates. Patient had a miscarriage in January. First ultrasound May 06, 2025. Patient was 15 weeks and 2 days . And this gives estimated due date October 25, 2025. Patient has been complaining of hives that are very itchy and red for the last 2 to 3 weeks. And she has missed work for that. Unable to sleep. Patient also had the ER admission in April because of spotting pink. Denies any active bleeding at this point. Ultrasound showed low-lying placenta previa. I gave patient a prescription for hydroxyzine 50 mg twice daily. She can continue to follow-up with primary care for her rash as well. I advised patient to ask for consult with Derm. Scheduled with [facility] for anatomy scan in early bleeding. We did OB panel today with A1c, CMP, bile acids. NIPT, AFP and carrier screens. I placing patient off work for a month and then we will reevaluate because of the bleeding and the itching. We also talked about comfort measures for the itching and labor precautions. Return in 4 weeks for OB check Menstrual History Menstrual reliability: definite Flow: normal Menstrual regularity: regular Monthly: Yes OB History : 3 Para: 1 Hx # Pregnancies: 0 Hx Total # of Abortions (Spontaneous & Elective): 1 # of Living Children: 1 Delivery History 1st : Child's name: NOT PROVIDED date: 11/07/20 sex: male Delivery type: vaginal History of depression before or after : No Infection History & Risk Evaluation History of STDs: none HIV risk evaluation: low risk Hepatitis B risk evaluation: low risk Patient or partner has history of Genital Herpes: No Varicella/chicken pox status: immunized Genetic Screening & History Genetic Screening/Teratology Counseling - Includes patient, baby's father, or anyone in either family with: 1. Patient's age 35 years or older as of estimated date of delivery: No 2. Thalassemia (Guamanian, Cameroonian, Mediterranean, or Background); MCV less than 80: No 3. Neural Tube Defect (Meningomyelocele, Spina Bifida, or Anencephaly): No 4. Congenital Heart Defect: No 5. Down Syndrome: No 6. Carlos-Sachs (Ashkenazi Jew, Cajun, Tunisian Dominican): No 7. Nicci Disease (Ashkenazi Jew): No 8. Familial Dysautonomia (Ashkenazi Jew): No 9. Sickle Cell Disease or Trait (): No 10. Hemophilia or other blood disorders: No 11. Muscular Dystrophy: No 12. Cystic Fibrosis: No 13. Arnav's Chorea: No 14. Mental Retardation/Autism: No 15. Other inherited genetic or chromosomal disorder: No 16. Maternal Metabolic Disorder (EG,TYPE 1 Diabetes, PKU): No 17. Patient or baby's father had a child with defects not listed above: No 18. Recurrent loss or a stillbirth: No 19. Medications (including supplements, vitamins, herbs or otc drugs)/illicit/recreational drugs/alcohol since last menstrual period: No 20. Any other: No Infection History 1. Live with someone with TB or exposed to TB: No 2. Rash or viral illness since last menstrual period: No 3. Hepatitis B,C: No Other (see comments) Source: [employer] Review of Systems Review of Systems Systems Reviewed: All systems reviewed, normal except as documented Exam Narrative Physical exam: papular hives over body General Limitations: no limitations General Appearance: alert, in no apparent distress, comfortable, cooperative, healthy appearing, well developed and well groomed Head Head exam: atraumatic, normocephalic and normal inspection Chest Chest inspection: Present normal inspection and symmetric chest wall rise Resp Respiratory exam: Present normal lung sounds bilaterally Abdominal Abdominal exam: Present soft and normal bowel sounds Extremities Extremities exam: Present normal inspection and full ROM Psych Psychiatric exam: Present normal affect and normal mood Skin Skin exam: Present warm, dry, intact and normal color Office Procedures OBC Clinic LOC & Office Proc's Nursing/Assessment Patient Status: Established Patient OB Clinic Nursing Assessment: Medication Reconciliation, Update PMH in EMR and Vital Signs OB Clinic Coordination of Care: Education Complex Pt/Fam, Consent,records obtained, informed consent, Lab and Imaging orders, Results/Orders obtained and Staff clarify orders Special Needs: Heart tones Established Patient Charge Established Patient Point Assignment: 115 Established Patient Point Charge: EP Level 3 (80-115) Assessment & Plan Diagnosis / Problem List (1) Encounter for supervision of high risk in second trimester, antepartum: Status: Acute (2) Obesity affecting in second trimester: Status: Acute Plan Hydroxyzine 50 mg p.o. twice daily for generalized itching. Discussed comfort measures for hives. Advised patient to continue to follow-up with primary care for the hives and also to ask for referral to dermatology. Scheduled appointment with maternal- medicine/Dr. Holt for early bleeding. Today OB panel, NIPT/AFP and carrier screen. We also did CMP/bile acids and TSH. Patient off work for 4 weeks. Will reevaluate then return in 4 weeks OB check Additional Plan Follow Up: 4 Weeks (obc)
[2025-05-16 09:59] VITALS: BP 134/79; PULSE 80; RESP 16; TEMP 36.2; O2SAT 97; BMI 36.1
== END 2025-05-16 10:18 | disposition home or self-care (01) ==
LOC: HODSOBC 09:47
PROVIDERS: Supervising Provider Advanced Practice Midwife; Visit Provider Advanced Practice Midwife
DX: O09.892 Supervision of other high risk pregnancies, second trimester (principal); O99.212 Obesity complicating pregnancy, second trimester; O26.892 Other specified pregnancy related conditions, second trimester; L29.9 Pruritus, unspecified; O44.42 Low lying placenta NOS or without hemorrhage, second trimester; Z3A.16 16 weeks gestation of pregnancy
CPT/HCPCS: 99213; G0463

== ENCOUNTER 2025-06-13 09:52 | Outpatient (AMB) | payer MEDICAID, SELFPAY ==
[2025-06-13 09:58] VITALS: BP 128/81; PULSE 89; RESP 16; TEMP 36.4; O2SAT 98; BMI 36.1
--- NOTE | 2025-06-13 09:58 | OBCLNT_ITS ---
Vital Signs 06/13/25 09:58 Height 1.6 m Height Method Stated Weight 92.59 kg Weight Measurement Method Standing Scale BMI 36.1 BP 128/81 Blood Pressure Source Automatic Cuff Blood Pressure Location Left Upper Arm Position Sitting Respiration 16 Pulse 89 Pulse Source Monitor Temp 97.6 F Temp Source Oral Pulse Oximetry (%) 98 Oxygen Delivery Method Room Air Allergies/Home Meds Allergies & Medications Allergies NKA* Allergy (Uncoded 06/13/25 10:05) Medication Reconciliation ibuprofen 800 mg tablet 800 mg PO Q8H PRN pain #30 tabs 11/07/20 [Rx Confirmed 06/13/25] prenat.vits,micah,bce-xtie-gpuqi 1 tab PO QDAY 11/07/20 [History Confirmed 06/13/25] ferrous sulfate 325 mg (65 mg iron) tablet 325 mg PO BID #60 tabs 11/08/20 [Rx Confirmed 06/13/25] doxylamine 10 mg-pyridoxine (vit B6) 10 mg tablet,delayed release (Diclegis) 1 tab PO QDAY #30 tabs 04/27/25 [Rx Confirmed 06/13/25] hydrocortisone 1 % topical cream 1 applic topical TID PRN itching #28.35 grams 05/06/25 [Rx Confirmed 06/13/25] hydroxyzine HCl 50 mg tablet 50 mg PO BID itching #60 tabs 05/16/25 [Rx Confirmed 06/13/25] nitrofurantoin monohydrate/macrocrystals 100 mg capsule (Macrobid) 100 mg PO BID 7 days #14 caps 06/13/25 [Rx] Intake Visit Data Collection New Patient or Established: Established Patient (seen at [facility] within 3 years) Reason for Visit:: CARE Seen by Clinical Staff ONLY (RN/MA): No At Home Independent Call Center Agent Required: No Do You Feel Safe at Home: Yes Authorities Contacted: N/A PCP or OBGYN visit in last 3 months: Yes Hx Now: Yes Are you currently on any form of Control: No Pain Present Currently: No Pain Scale Used: Mast-Mixon/Numerical Pain scale:: 0 Smoking Status Smoking Status: Never smoker Immunizations Flu Vaccine in the Last 12 Months: Yes Flu Vaccine Exclusion Criteria: Already Received Questionnaires Covid-19 Vaccine Questionnaire Has patient been vacinated for Covid-19 Have you been vacinated for Covid-19: Yes PHQ-9 PHQ-2 Over the last 2 weeks, how often have you been bothered by any of the following problems? 1. Little interest or pleasure in doing things: not at all 2. Feeling down, depressed, or hopeless: not at all Total score: 0 PHQ-9 3. Trouble falling or staying asleep, or sleeping too much: Not at all 4. Feeling tired or having little energy: Not at all 5. Poor appetite or overeating: Not at all 6. Feeling bad about yourself - or that you are a failure or have let yourself or your family down: Not at all 7. Trouble concentrating on things, such as reading the newspaper or watching television: Not at all 8. Moving or speaking so slowly that other people could have noticed? - Or the opposite - being so fidgety or restless that you have been moving around a lot more than usual: not at all 9. Thoughts that you would be better off or of hurting yourself in some way: Not at all Total score: 0 Source: Developed by Drs. Andre Hearn, Dasha Paul, Cory March and colleagues, with an educational meryl from [employer]. Depression screen completed yes Social History Living Situation History Lives With: Family Housing: TRAILER Tobacco History Smoking Status: Never smoker Second Hand Smoke Exposure: No Alcohol History Alcohol Intake: Never Domestic Abuse History Do You Feel Safe at Home: Yes OB GYN: Past Medical History Past Medical History: No Hx Neurological Disorders, No Hx Cardiac Disorders, No Hx Cancer, No Hx Blood Disorders, No Hx Gastrointestinal Disorders, No Hx Renal Disease, No Hx Diabetes Mellitus Type 1 and No Hx Diabetes Mellitus Type 2 Care OB Visit Log OB Flowsheet Initial Weight: Not Recorded Date -?-?-?-?-?-?-?-?-?-?-?-?- EGA Weight BP Alb Glu CTX Pres Fundal ht FHR Mov Dilation Station Effacement Hx Notes Visit Note 05/16/25 -?-?-?-?-?-?-?-?-?-?-?-?- 16w 5d 92.59 kg 134/79 absent unknown 16 145 active 24-year-old 3 para 1 for OBI. Patient's last period January 19, 2025. Reports poor dates. Patient had a miscarriage in January. First ultrasound May 06, 2025. Patient was 15 weeks and 2 days . And this gives estimated due date October 25, 2025. Patient has been complaining of hives that are very itchy and red for the last 2 to 3 weeks. And she has missed work for that. Unable to sleep. Patient also had the ER admission in April because of spotting pink. Denies any active bleeding at this point. Ultrasound showed low-lying placenta previa. I gave patient a prescription for hydroxyzine 50 mg twice daily. She can continue to follow-up with primary care for her rash as well. I advised patient to ask for consult with Derm. Scheduled with [facility] for anatomy scan in early bleeding. We did OB panel today with A1c, CMP, bile acids. NIPT, AFP and carrier screens. I placing patient off work for a month and then we will reevaluate because of the bleeding and the itching. We also talked about comfort measures for the itching and labor precautions. Return in 4 weeks for OB check 06/13/25 -?-?-?-?-?-?-?-?-?-?-?-?- 20w 5d 92.59 kg 128/81 absent unknown 20 145 active Patient states that the Vistaril and triamcinolone have been helping with the itching. The hives have gone away and now the rash looks more blotchy. She still states that she is unable to work close, that the itching is still present. And it can be painful. Patient has a history of low-lying placenta but with this disability starting today 06/13/25, comfort measure for resolving hives. continue Vistaril 50mg po q 8hr as needed for itching and triamcinolone ointment. Cholestasis labs today. Patient had's her anatomy scan with Dr. Holt pending. I also gave her Macrobid 100 p.o. twice daily x 7 for UTI. Return in 4 weeks for OB check ENEDINA Calculator Estimated Delivery Date Method Current WG Current Estimate 10/26/25 LMP (Uncertain) 20w 5d Other Estimates 10/26/25 Ultrasound #1 20w 5d Notes Visit Date: 06/13/25 Last Updated by: Joyce Rosales CNM ob panel: UT-, hbsag-,hcv-, hiv-, rpr;;nr, rub imm, A+,ABS-, GC/CT-, /, + UTI: , NIPT-/male, sma/CF-, AFP- Visit Date: 05/16/25 Last Updated by: Joyce Rosales CNM sono: 05/06/25: 15w2. EDC: 10/25/24. 24 yo Office Procedures OBC Clinic LOC & Office Proc's Nursing/Assessment Patient Status: Established Patient OB Clinic Nursing Assessment: Medication Reconciliation, Update PMH in EMR and Vital Signs OB Clinic Coordination of Care: Complex Care and Chronic Disease 1-5, Consent,records obtained, informed consent, Education Simp Pt/Fam, 1 Ins Authorization, Lab and Imaging orders, Results/Orders obtained and Staff clarify orders Special Needs: Heart tones Established Patient Charge Established Patient Point Assignment: 150 Established Patient Point Charge: EP Level 4 (120-155) Assessment & Plan Diagnosis / Problem List (1) Low lying placenta nos or without hemorrhage, first trimester: Status: Acute (2) Obesity affecting in second trimester: Status: Acute (3) Encounter for supervision of high risk in second trimester, antepartum: Status: Acute (4) Cholestasis during in second trimester: Status: Acute Plan Bile acids and bili today. Comfort measures for continued itching. Patient can continue her hydrocortisone cream twice daily and 50 mg of Vistaril for itching. Macrobid 100 mg p.o. twice daily for UTI. Patient has an ultrasound with Dr. Jonathon galaviz in June. Discussed labor precautions. Comfort measures. Return in 4 weeks OB check. Note for disability. Disability will start today on June 13. And I also gave her referral for continue dental work. Additional Plan Follow Up: 4 Weeks (obc)
== END 2025-06-13 11:11 | disposition home or self-care (01) ==
LOC: HODSOBC 09:52
PROVIDERS: Supervising Provider Advanced Practice Midwife; Visit Provider Advanced Practice Midwife
DX: O09.892 Supervision of other high risk pregnancies, second trimester (principal); O44.42 Low lying placenta NOS or without hemorrhage, second trimester; O99.212 Obesity complicating pregnancy, second trimester; O26.642 Intrahepatic cholestasis of pregnancy, second trimester; O23.42 Unspecified infection of urinary tract in pregnancy, second trimester; Z3A.20 20 weeks gestation of pregnancy
CPT/HCPCS: 99214; G0463

== ENCOUNTER 2025-08-09 14:57 | Emergency (ER) | payer MEDICAID, SELFPAY ==
[2025-08-09 14:57] VITALS: BMI 36.0
[2025-08-09 15:19] VITALS: BP 135/94; PULSE 87; RESP 20; TEMP 36.7; O2SAT 100
--- NOTE | 2025-08-09 15:30 | XR_ITS ---
Examination: Complete OB ultrasound greater than 14 weeks Date and time of exam: 08/09/2025 at 4:19 p.m. CLINICAL HISTORY: Vomiting blood for 15 months on and off Findings: There is a single viable intrauterine fetus noted in cephalic presentation, currently facing posteriorly with the back located anteriorly heart rate is normal at 155 bpm. The placenta is located along the anterior wall of the mid and upper body of the uterus. It is grade 1. The amniotic fluid volume index is 14.5 cm which is normal the umbilical cord insertion is identified and is all right, there is a normal three-vessel umbilical cord The urinary bladder and both kidneys in the stomach and spine are seen and appear essentially unremarkable. The length of the cervix is 5.5 cm which appears all right Both right and left ovaries are obscured by bowel gas and cannot be visualized. Multiple parameters of gestational age indicate an average gestational age of 28 weeks 5 days. Estimated weight is 1244.2 g estimated date of delivery is October 27, 2025 IMPRESSION: 1. There is a single viable intrauterine gestation currently in cephalic presentation facing posteriorly. 2 the average gestational age measures 28 weeks 5 days, estimated date of delivery 2025 3. There is excellent visualization of the anatomy, all of which appears normal, further discussed above. Estimated weight is 1244.2 g .
--- NOTE | 2025-08-09 15:30 | EDRME_ITS ---
Rapid Medical Screening Exam [facility] Arrival date/time: 08/09/25 14:57 24-year-old female with no known medical history presents to the emergency room with a chief complaint of vomiting blood, and right lower quadrant abdominal tenderness x 2 days I have greeted and performed a focused initial assessment of this patient. A comprehensive ED assessment and evaluation of the patient, analysis of all test results, and completion of the medical decision making process will be conducted by additional ED providers. Chief Complaint: Nausea/Vomiting/Diarrhea Time Seen by Provider: 08/09/25 15:24 Vital signs: Vital Signs Temperature 98.1 F 08/09/25 15:19 Pulse Rate 87 08/09/25 15:19 Respiratory Rate 20 08/09/25 15:19 Blood Pressure 135/94 H 08/09/25 15:19 Pulse Oximetry (%) 100 08/09/25 15:19 Oxygen Delivery Method Room Air 08/09/25 15:19 Vital signs reviewed by provider: Yes Exam: Right lower abdominal tenderness with palpation Clear bilateral lung sounds Clinical Impression: Abdominal cramping/vomiting blood
[2025-08-09 16:38] LABS: Basophils # (Auto) 0.0 Thou/mm3 (0.0-0.2); Basophils % (Auto) 0 % (0-2.5); Eosinophils # (Auto) 0.1 Thou/mm3 (0.0-0.5); Eosinophils % (Auto) 1 % (0-10); Hematocrit 34.7 % (36.0-46.0); Hemoglobin 11.4 g/dL (12.0-16.0); Immature Granulocytes Auto 0.04 Thou/mm3 (0.00-0.00); Lymphocytes # (Auto) 2.0 Thou/mm3 (1.0-4.8); Lymphocytes % (Auto) 20 % (10-50); Mean Corpuscular HGB Conc 32.9 g/dl (31.0-37.0); Mean Corpuscular Hemoglobin 28.6 pg (25.0-35.0); Mean Corpuscular Volume 87 fL (80-100); Monocytes # (Auto) 0.6 Thou/mm3 (0.0-0.8); Monocytes % (Auto) 6 % (0-12); Neutrophils # (Auto) 7.4 Thou/mm3 (1.8-7.7); Neutrophils % (Auto) 73 % (37-80); Nucleated Red Blood Cell # 0.00 Thou/mm3 (0.00-0.00); Nucleated Red Blood Cell % 0 /100 WBC (0); Platelet Count 308 Thou/mm3 (140-440); RDW Standard Deviation 38.2 fL (36.4-46.3); Red Blood Count 3.98 Miln/mm3 (4.00-5.20); White Blood Count 10.1 Thou/mm3 (3.6-11.0)
[2025-08-09 17:07] LABS: Collection Type, Urine Clean Catch
[2025-08-09 17:09] LABS: Alanine Aminotransferase < 7 U/L (10-49); Albumin, Serum 4.0 gm/dL (3.5-5.0); Albumin/Globulin Ratio 1.3 (1.2-2.2); Alkaline Phosphatase 79 U/L (46-116); Anion Gap 10 (7-16); Aspartate Amino Transferase 16 U/L (0-34); BUN/Creatinine Ratio 10 Ratio (12-20); Beta HCG,Quantitative 2978 mIU/mL (<5.0); Bilirubin,Total 0.5 mg/dL (0.3-1.2); Blood Urea Nitrogen 7 mg/dL (9-23); Calcium 8.9 mg/dL (8.3-10.6); Calcium (Corrected) 8.9 mg/dL (8.5-10.1); Carbon Dioxide 23.5 mMol/L (20.0-31.0); Chloride 105 mMol/L (98-107); Creatinine (Component) 0.7 mg/dL (0.6-1.3); Estimated Creatinine Clearance 137.6 mL/min (>60); Globulin 3.0 gm/dL (2.3-3.5); Glucose 87 mg/dL (74-106); Osmolality,Calculated 272 (275-295); Potassium 4.6 mMol/L (3.4-5.1); Sodium 138 mMol/L (136-145); Total Protein 7.0 gm/dL (5.7-8.2); eGFR > 60 See Note
[2025-08-09 17:25] LABS: Bacteria,Urine Rare; Bilirubin,Urine Negative (Negative); Blood,Urine Negative (Negative); Clarity,Urine Turbid (Clear/Hazy); Color,Urine Lt-Yellow (Lt Yel-Yel); Glucose, Urine Negative (Negative); Ketones,Urine 2+ (Negative); Leukocyte Esterase,Urine Negative (Negative); Nitrite,Urine Negative (Negative); PH,Urine 7.0 (5.0-7.0); Protein,Urine Negative (Neg - Trace); RBC,Urine 5 /hpf (0-3); Specific Gravity,Urine 1.019 (1.001-1.035); Squamous Epithelial Cell,Urine 7 /hpf (0-5); Urobilinogen,Urine Negative mg/dL (0.0-1.0); WBC,Urine 1 /hpf (0-5)
--- NOTE | 2025-08-09 18:01 | PD.EDNV ---
Nausea/Vomit./Diarrhea-RME/HPI General Chief complaint: Nausea/Vomiting/Diarrhea Stated complaint: HEMATEMESIS & L ABD PAIN X1 DAY; 28 WEEKS OB Time Seen by Provider: 08/09/25 15:24 Arrival date/time: 08/09/25 14:57 24-year-old female patient with significant history of blood thinners vomitus in the past, came in for evaluation regarding vomiting, this morning noticed blood-tinged vomit extremity mild. Patient is 28 weeks . Patient denies any abdominal pain denies any vaginal bleeding or spotting denies any abnormal vaginal discharge. No fever noted. Patient was seen by GI specialist in the past, however no endoscopy was done. Denies any dizziness denies any other complaints. RME / HPI RME / HPI Narrative: 08/09/25 14:57 24-year-old female with no known medical history presents to the emergency room with a chief complaint of vomiting blood, and right lower quadrant abdominal tenderness x 2 days I have greeted and performed a focused initial assessment of this patient. A comprehensive ED assessment and evaluation of the patient, analysis of all test results, and completion of the medical decision making process will be conducted by additional ED providers. Exam: Right lower abdominal tenderness with palpation Clear bilateral lung sounds Impression: Abdominal cramping/vomiting blood Related Data Home Medications ?Medication ?Instructions ?Recorded ?Confirmed prenat.vits,micah,wmk-jgyp-pkdfp 1 tab PO QDAY 11/07/20 07/10/25 Previous Rx's ?Medication ?Instructions ?Recorded ibuprofen 800 mg tablet 800 mg PO Q8H PRN pain #30 tabs 11/07/20 ferrous sulfate 325 mg (65 mg 325 mg PO BID #60 tabs 11/08/20 iron) tablet doxylamine 10 mg-pyridoxine (vit 1 tab PO QDAY #30 tabs 04/27/25 B6) 10 mg tablet,delayed release (Diclegis) hydrocortisone 1 % topical cream 1 applic topical TID PRN itching 05/06/25 #28.35 grams hydroxyzine HCl 50 mg tablet 50 mg PO BID itching #60 tabs 07/26/25 ondansetron HCl 4 mg tablet 4 mg PO Q8H PRN nausea and 08/09/25 vomiting 5 days #20 tabs Allergies Allergy/AdvReac Type Severity Reaction Status Date / Time NKA* Allergy Uncoded 08/09/25 15:00 Review of Systems Review of Systems Narrative Review of Systems: Review of system reviewed and within normal limits except mentioned in HPI ED Exam Narrative Physical exam: VITAL SIGNS: Reviewed. GENERAL APPEARANCE: Alert and interactive, follows commands, no acute distress, HEAD AND FACE: Non-traumatic. ENT: PERRL, pink conjunctivitis, eyelid no trauma, Mucous membrane moist. NECK: Supple, nontender, no nuchal rigidity. CHEST: No tenderness, no crepitus, no paradoxical movement, no retractions. LUNGS: Clear, well ventilated, symmetric, no rales, no wheezing, no ronchi, no stridor, good breath sounds bilaterally. HEART: Regular rate, regular rhythm, no murmur, no gallops. ABDOMEN: Soft, positive bowel sounds, gravid abdomen, no guarding, nontender, no rebound, no masses, RECTAL: Deferred. GENITAL: Deferred. NEUROLOGICAL: Gross motor function intact sensory function intact, Appropriate for age. MUSCULOSKELETAL: low back nontender, full range of motion. EXTREMITIES: Nontender, full range of motion. SKIN: Color pink, dry, no rash, no lacerations, no abrasions, no contusions. LYMPHATICS: Deferred. Course Quality Measures none Orders Category Date Time Status US OB >= 14 weeks Fetus Stat Exams 08/09/25 15:30 Completed ABO/RH Type Stat Lab 08/09/25 16:12 Completed Beta HCG,Quantitative Stat Lab 08/09/25 16:12 Completed CBC Stat Lab 08/09/25 16:12 Completed CMP [Comprehensive Metabolic Panel] Stat Lab 08/09/25 16:12 Completed UA [Urinalysis] Stat Lab 08/09/25 17:00 Completed Ondansetron Odt [Zofran Odt] Med 08/09/25 17:54 Discontinued 4 mg PO X1 ONE Vital Signs Vital signs: Vital Signs Temperature 98.1 F 08/09/25 15:19 Pulse Rate 87 08/09/25 15:19 Respiratory Rate 20 08/09/25 15:19 Blood Pressure 135/94 H 08/09/25 15:19 Pulse Oximetry (%) 100 08/09/25 15:19 Oxygen Delivery Method Room Air 08/09/25 15:19 Nausea/Vomiting/Diarrhea MDM Narrative MDM Narrative:: 24-year-old female patient with significant history of blood thinners vomitus in the past, came in for evaluation regarding vomiting, this morning noticed blood-tinged vomit extremity mild. Patient is 28 weeks . Patient denies any abdominal pain denies any vaginal bleeding or spotting denies any abnormal vaginal discharge. No fever noted. Patient was seen by GI specialist in the past, however no endoscopy was done. Denies any dizziness denies any other complaints. Patient CBC showed normal hemoglobin of 11.4, hematocrit of 34.7, several weeks ago it was 10.7. While in the ER patient is nauseous however no recurrence of vomiting. I gave her Zofran. Ultrasound of the showed 1. There is a single viable intrauterine gestation currently in cephalic presentation facing posteriorly. 2 the average gestational age measures 28 weeks 5 days, estimated date of delivery 2025 3. There is excellent visualization of the anatomy, all of which appears normal, further discussed above. Estimated weight is 1244.2 g Patient was advised to follow-up with [employer] and for referral to GI specialist regarding blood-tinged bowel movement. Currently patient is stable for charged home. She told me she never had epigastric pain or history of gastritis in the past. Patient data External records reviewed:: None Clinical information provided by:: patient Social determinants that could affect healthcare access:: none Patient has the following chronic illnesses:: None How is presenting disease/condition affected by chronic disease/condition?: no chronic disease Evaluation data The following diagnostics were reviewed and interpreted by me:: lab results and radiology exam(s) Lab and/or radiology exams considered but not ordered:: None Interpretation Summary: See above Medications / Prescriptions Medications / Prescriptions considered but not ordered:: None Medication administrations:: Medication Administration History Discontinued Medications Ondansetron HCl (Ondansetron Odt 4 Mg Tabrap) 4 mg PO X1 ONE; Protocol Stop: 08/09/25 17:55 Zofran Consultations Consultation(s) initiated? (list below): No Diagnosis Nausea Differential Diagnosis: gastroenteritis and other (Nausea and vomiting, blood-tinged vomitus, ) Most likely diagnosis given after review of the tests above:: Nausea vomiting, Admission Indicated Admission indicated?: not indicated Admission Request Was there a request for admission?: No Disposition Plan Disposition Plan: Discharge Discharge Attestation Discharge Attestation: The patient and all family members were given an opportunity to ask questions and understood the discharge instructions. Discharge instructions specifically effects, indications for sooner follow up or return to the emergency department, and the expected course of current diagnosis. Patient condition: Stable Discharge Plan Plan Patient Disposition: HOME (Self Care) Discharge Disposition comment: Stable Prescriptions/Referrals Prescriptions/Med Rec: New ondansetron HCl 4 mg tablet 4 mg PO Q8H PRN (Reason: nausea and vomiting) 5 Days Qty: 20 0RF No Action hydroxyzine HCl 50 mg tablet 50 mg PO BID Qty: 60 1RF prenat.vits,micah,foc-noos-axohe Tablet 1 tab PO QDAY ibuprofen 800 mg tablet 800 mg PO Q8H PRN (Reason: pain) Qty: 30 0RF ferrous sulfate 325 mg (65 mg iron) tablet 325 mg PO BID Qty: 60 2RF doxylamine-pyridoxine (vit B6) [Diclegis] 10-10 mg tablet,delayed release (DR/EC) 1 tab PO QDAY Qty: 30 0RF hydrocortisone 1 % cream 1 applic topical TID PRN (Reason: itching) Qty: 28.35 0RF Referrals: Eli)Ayse PA-C [Primary Care Provider] - In 1 week Problem List Clinical Impression: Nausea & vomiting, Patient/Caregiver Discharge Instructions Discharge Activity: activity as tolerated Education Materials: ED Vomiting (Adult) Additional Instructions: Thank you for the opportunity for serving you today. You are stable for discharged . You are advised to: Follow-up with your PCP in 1 to 2 days Return to ED for worsening of symptoms Increase oral fluids Take medication as prescribed Print Language: Hebrew Stand Alone Forms: Rosemary Award Info., Patient Portal Info Letter BETSEY/CARMELINA Supervising Physician DOV Supervising Physician: MD Greg
[2025-08-09] MEDS: ONDANSETRON ODT 4 MG TABRAP PO (18:04)
[2025-08-09 18:07] VITALS: PULSE 101; RESP 19; TEMP 36.7; O2SAT 98
== END 2025-08-09 18:08 | disposition home or self-care (01) ==
PROVIDERS: Nurse Practitioner Family; Emergency Provider Emergency Medicine; PCP Nurse Practitioner Family
DX: O21.2 Late vomiting of pregnancy (principal); Z3A.28 28 weeks gestation of pregnancy
CPT/HCPCS: 36415; 76805; 80053; 81001; 84702; 85025; 86900; 86901; 99283; Q0162

== ENCOUNTER 2025-08-12 11:05 | Outpatient (AMB) | payer MEDICAID, SELFPAY ==
[2025-08-12 11:11] VITALS: BP 127/84; PULSE 100; RESP 18; TEMP 36.2; O2SAT 98; BMI 36.1
--- NOTE | 2025-08-12 11:11 | OBCLNT_ITS ---
Vital Signs 08/12/25 11:11 Height 1.63 m Height Method Stated Weight 95.935 kg Weight Measurement Method Standing Scale BMI 36.1 BP 127/84 Blood Pressure Source Automatic Cuff Blood Pressure Location Left Upper Arm Position Sitting Respiration 18 Pulse 100 Pulse Source Monitor Temp 97.2 F Temp Source Oral Pulse Oximetry (%) 98 Oxygen Delivery Method Room Air Allergies/Home Meds Allergies & Medications Allergies NKA* Allergy (Uncoded 08/12/25 11:12) Medication Reconciliation ibuprofen 800 mg tablet 800 mg PO Q8H PRN pain #30 tabs 11/07/20 [Rx Confirmed 08/12/25] prenat.vits,micah,kmy-xwly-zrswj 1 tab PO QDAY 11/07/20 [History Confirmed 08/12/25] ferrous sulfate 325 mg (65 mg iron) tablet 325 mg PO BID #60 tabs 11/08/20 [Rx Confirmed 08/12/25] doxylamine 10 mg-pyridoxine (vit B6) 10 mg tablet,delayed release (Diclegis) 1 tab PO QDAY #30 tabs 04/27/25 [Rx Confirmed 08/12/25] hydrocortisone 1 % topical cream 1 applic topical TID PRN itching #28.35 grams 05/06/25 [Rx Confirmed 08/12/25] hydroxyzine HCl 50 mg tablet 50 mg PO BID itching #60 tabs 07/26/25 [Rx Confirmed 08/12/25] ondansetron HCl 4 mg tablet 4 mg PO Q8H PRN nausea and vomiting 5 days #20 tabs 08/09/25 [Rx Confirmed 08/12/25] ferrous sulfate 325 mg (65 mg iron) tablet 325 mg PO BID #60 tabs 08/12/25 [Rx] Immunizations Immunizations Flu Vaccine in the Last 12 Months: Yes Flu Vaccine Exclusion Criteria: Already Received Care OB Visit Log OB Flowsheet Initial Weight: Not Recorded Date -?-?-?-?-?-?-?-?-?-?-?-?- EGA Weight BP Alb Glu CTX Pres Fundal ht FHR Mov Dilation Station Effacement Hx Notes Visit Note 05/16/25 -?-?-?-?-?-?-?-?-?-?-?-?- 16w 5d 92.59 kg 134/79 absent unknown 16 145 active 24-year-old 3 para 1 for OBI. Patient's last period January 19, 2025. Reports poor dates. Patient had a miscarriage in January. First ultrasound May 06, 2025. Patient was 15 weeks and 2 days . And this gives estimated due date October 25, 2025. Patient has been complaining of hives that are very itchy and red for the last 2 to 3 weeks. And she has missed work for that. Unable to sleep. Patient also had the ER admission in April because of spotting pink. Denies any active bleeding at this point. Ultrasound showed low-lying placenta previa. I gave patient a prescription for hydroxyzine 50 mg twice daily. She can continue to follow-up with primary care for her rash as well. I advised patient to ask for consult with Derm. Scheduled with [facility] for anatomy scan in early bleeding. We did OB panel today with A1c, CMP, bile acids. NIPT, AFP and carrier screens. I placing patient off work for a month and then we will reevaluate because of the bleeding and the itching. We also talked about comfort measures for the itching and labor precautions. Return in 4 weeks for OB check 06/13/25 -?-?-?-?-?-?-?-?-?-?-?-?- 20w 5d 92.59 kg 128/81 absent unknown 20 145 active Patient states that the Vistaril and triamcinolone have been helping with the itching. The hives have gone away and now the rash looks more blotchy. She still states that she is unable to work close, that the itching is still present. And it can be painful. Patient has a history of low-lying placenta but with this disability starting today 06/13/25, comfort measure for resolving hives. continue Vistaril 50mg po q 8hr as needed for itching and triamcinolone ointment. Cholestasis labs today. Patient had's her anatomy scan with Dr. Holt pending. I also gave her Macrobid 100 p.o. twice daily x 7 for UTI. Return in 4 weeks for OB check 07/10/25 -?-?-?-?-?-?-?-?-?-?-?-?- 24w 4d 94.517 kg 129/84 absent unknown 24 145 active No OB complaints. States that the itching is better with her style. Cholestasis labs were normal. Reports good movement. Denies leaking, bleeding, contractions f/u bhumi stasis labs at 32 week. Third trimester labs today. Discussed labor precautions. Comfort measures for itching. Continue the ursodiol as directed. And kick count twice a day. Return in 2 weeks 08/12/25 -?-?-?-?-?-?-?-?-?-?-?-?- 29w 2d 95.935 kg 127/84 absent unknown 29 145 active Itching improved. Reports good movement. Denies leaking, bleeding, contractions Follow-up ultrasound at [facility] scheduled for 4 weeks. Repeat cholestasis labs. Discussed labor precautions. Reviewed Tdap and patient will decide at the next appointment. Return in 3 weeks OB check ENEDINA Calculator Estimated Delivery Date Method Current WG Current Estimate 10/26/25 LMP (Uncertain) 29w 2d Other Estimates 10/26/25 Ultrasound #1 29w 2d 10/26/25 Ultrasound #2 29w 2d 10/26/25 Manual 29w 2d final enedina: 10/26 Notes Visit Date: 08/12/25 Last Updated by: Joyce Rosales CNM 08/12: 3rd tri lab wnl Visit Date: 07/10/25 Last Updated by: Joyce Rosales CNM 06/28: sono: no previa, normal MATTHEW bhumi stasis lab: 3.1, Bili: wnl Visit Date: 06/13/25 Last Updated by: Joyce Rosales CNM ob panel: UT-, hbsag-,hcv-, hiv-, rpr;;nr, rub imm, A+,ABS-, GC/CT-, /309, + UTI: , NIPT-/male, sma/CF-, AFP- Visit Date: 05/16/25 Last Updated by: Joyce Rosales CNM sono: 05/06/25: 15w2. EDC: 10/25/24. 24 yo Office Procedures [facility] LOC & Office Proc's Nursing/Assessment Patient Status: Established Patient OB Clinic Nursing Assessment: Medication Reconciliation, Update PMH in EMR and Vital Signs OB Clinic Coordination of Care: Complex Care and Chronic Disease 1-5, Consent,records obtained, informed consent, Education Simp Pt/Fam, Lab and Imaging orders, Results/Orders obtained and Staff clarify orders Special Needs: Heart tones Established Patient Charge Established Patient Point Assignment: 135 Established Patient Point Charge: EP Level 4 (120-155) Assessment & Plan Diagnosis / Problem List (1) Encounter for supervision of high risk in third trimester, antepartum: Status: Acute (2) Cholestasis during in second trimester: Status: Acute Plan Repeat third trimester labs. Discussed kick count. I offered Tdap and patient declined today. Info given. Discussed labor precautions. Follow-up w ith maternal- medicine in 4 weeks. Return in 4 weeks OB check Additional Plan Follow Up: 4 Weeks (obc)
== END 2025-08-12 11:21 | disposition home or self-care (01) ==
LOC: HODSOBC 11:05
PROVIDERS: Supervising Provider Advanced Practice Midwife; Visit Provider Advanced Practice Midwife
DX: O09.893 Supervision of other high risk pregnancies, third trimester (principal); O26.643 Intrahepatic cholestasis of pregnancy, third trimester; Z3A.29 29 weeks gestation of pregnancy
CPT/HCPCS: 99214; G0463